=== PATIENT | female | born 1935 | race Caucasian/White ===

== ENCOUNTER 2022-03-07 08:00 | Outpatient (CLI) | payer MEDICARE, BC ==
--- NOTE | 2022-03-07 09:44 | XRAY Report ---
PROCEDURE: Foot 2 View LT INDICATIONS: PAIN IN LEFT FOOT TECHNIQUE: 2 views of the foot were acquired. COMPARISON: None FINDINGS: Bones: Moderate hallux valgus is seen. Osteoarthritic changes are also noted throughout MTP joint and interphalangeal joints. Small calcification adjacent to lateral aspect of fifth metatarsal base whic h could represent age-indeterminate avulsion injury in this area. No other fracture or dislocation is seen. No suspicious bony lesions. Soft tissues: No tibiotalar joint effusion. Achilles tendon appears normal. IMPRESSION: Age-indeterminate avulsion injury involving fifth metatarsal base suggests clinical correlation. No o ther fracture or dislocation. 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 Reviewed by: Berny Howell MD on 03/07/2022 9:42 AM PDT Approved by: Berny Howell MD on 03/07/2022 9:42 AM PDT Station ID: [id number]
--- NOTE | 2022-03-07 09:44 | XRAY Report ---
PROCEDURE: Ankle 3 View LT INDICATIONS: PAIN IN LEFT ANKLE TECHNIQUE: 3 views of the ankle were acquired. COMPARISON: None FINDINGS: Bones: Curvilinear calcification adjacent to tip of lateral malleolus is seen suggestive of avulsion injury in this area. No other fracture or dislocation. Ankle mortise is normally aligned. No suspici ous bony lesions. Well-defined plantar calcaneal enthesophyte is noted. Soft tissues: Lateral ankle soft tissue swelling is seen. No tibiotalar joint effusion. Achilles te ndon appears normal. IMPRESSION: Suggestion of acute avulsion injury involving lateral malleolus tip with overlying soft tissue swelling. No other fracture or dislocation. Ankle mortise is congruent. Reviewed by: Berny Howell MD on 03/07/2022 9:43 AM PDT Approved by: Berny Howell MD on 03/07/2022 9:43 AM PDT Station ID: [id number]
== END 2022-03-07 23:59 | disposition home or self-care (01) ==
LOC: DI.S 08:00
PROVIDERS: ATTEND Physician Assistant Medical
DX: M19.072 Primary osteoarthritis, left ankle and foot (principal); R93.6 Abnormal findings on diagnostic imaging of limbs; R93.89 Abnormal findings on diagnostic imaging of other specified body structures